=== PATIENT | male | born 1980 | race Caucasian/White ===

== ENCOUNTER 2017-04-05 12:02 | Emergency (ER) | payer OTHER ==
[~2017-04-05] VITALS: Ht 182.9 cm; Wt 100.0 kg
[2017-04-05 12:18] VITALS: BP 137/79; PULSE 69; RESP 16; O2SAT 99
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
[2017-04-05] MEDS ORDERED: Mupirocin 2% 22 Gm Ointment TOPICAL ONE (12:55)
[2017-04-05 13:13] VITALS: BP 126/71; PULSE 61; RESP 16; O2SAT 97
== END 2017-04-05 13:17 | disposition home or self-care (01) ==
LOC: SED 12:02
DX: L50.9 Urticaria, unspecified (principal); Z88.2 Allergy status to sulfonamides; Z88.1 Allergy status to other antibiotic agents

== ENCOUNTER 2017-04-10 10:21 | Emergency (ER) | payer OTHER ==
[~2017-04-10] VITALS: Ht 182.9 cm; Wt 99.1 kg
[2017-04-10 10:29] VITALS: BP 136/80; PULSE 56; RESP 14; O2SAT 97
--- NOTE | 2017-04-10 10:32 | ED.REPORT ---
HPI-Allergic Reaction Date of Service Apr 10, 2017 ED Provider: David Harp MD Patient is a 36 year old male who presents to the ED complaining of diffuse hives onset 3 weeks ago. Associated symptoms include eye lid swelling and throat swelling. The patient reports that the hives have been getting bigger. He denies difficulty breathing, nausea or diarrhea. Patient states that he has been trying to use Cetirizine and Ranidine, which had helped but did not completely resolve the hives. He recently switched to Fexofenadine yesterday instead of the Cetirizine but has seen no improvement. The patient states that he has not had any new foods, soaps or detergents. Patient states that he was seen last week for the hives and thought it was due to an allergic reaction to an antibiotic has been on but he finished that a few days ago. He reports that he had similar hives as a child that was only resolved with Prednisone. Nursing Notes Stated Complaint: HIVES HEAD TO TOE, THROAT TIGHT Chief Complaint: Allergic Reaction Nursing Notes Reviewed: Yes Allergies: Coded Allergies: cephalexin (Verified Allergy, Intermediate, LIP SWELLING, 04/05/17) Sulfa (Sulfonamide Antibiotics) (Verified Adverse Reaction, Mild, HIVES, ) Possible hives doxycycline (Verified Adverse Reaction, Mild, HIVES, 04/05/17) possible hives General Time Seen by MD: 10:31 Chief Complaint Rash Hx Obtained From: Patient Arrived By: Walk-in Onset Occurred: More than a week ago... (3 weeks) Symptom Duration: Waxes and wanes Similar Sx Previous: Yes Past Medical History Past Medical History none reported Past Surgical History right thigh, malgnimant melona remocal Smoking History Never Smoker Social History Alcohol Use: 1-3 per week Drug Use: Denies drug use Occupation live with parents and daughter work at [employer]. 04/05/2017 Ambulatory Status Independent Review of Systems Constitutional: Denies: Chills, Fever Ears / Nose / Throat: Reports: Throat swelling Respiratory: Denies: Non-productive cough, Shortness of breath, Wheezing GI: Denies: Diarrhea, Nausea Allergy / Immune: Reports: Allergic reaction, Hives Complete sys rev & neg: except as marked. Physical Exam Initial Vital Signs Vital Signs (First) Date Time Temp Pulse Resp B/P Pulse Ox O2 Delivery O2 Flow Rate FiO2 04/10/17 10:29 56 14 136/80 97 Room Air Initial VS: Reviewed General/Constitutional: Awake, Alert Respiratory / Chest: Atraumatic, Breath sounds NL, Breath sounds = bilat, No respiratory distress Cardiovascular: Heart rate NL, Regular rhythm, Heart sounds NL, No gallop, No murmurs, No rubs Skin: Warm, Dry diffuse urticaria Head / Eyes: Atraumatic, Normocephalic, PERRL bilateral conjunctival injection and mild eye lid swelling uvular swelling patches of urticaria Psychiatric: Affect NL, Mood NL Interpretation & Diagnostics ECG Interpretation ECG Interpretation: sinus rhythm early repolarization 1st degree block Time: 13:04 Normal ECG Interpretation: Normal rate (53) Re-Eval/Medical Decision Re-Evaluation/Progress #1: Time of Eval: 12:50 Patient Status: Mild relief Re-Evaluation/Progress #2: Time of Eval: 14:23 Patient Status: Condition improved Re-Evaluation/Progress Note: Discussed plan for discharge. Patient understands and agrees to plan. All questions were addressed. Counseled Regarding: Diagnosis, Need for follow-up, When/why to return to ED Discharge & Departure Primary Impression: Urticaria Disposition: Home Discharge Condition All VS Reviewed: Yes Condition: Stable Patient Instructions: Urticaria (ED) Additional Instructions: Emergency Department evaluation included interview and examination observation in the emergency department. We gave prednisone 60 mg and a dose of intramuscular epinephrine. Continue Cetrizine and ranitidine. Take tapering prednisone as prescibed. (60mg for 2 more days then 40mg then decrease by 10mg/ dy. Follow up with primary care joaquin. return to ED for increasing throat sweling, feeling faint or trouble breathing. Referrals: rBenden Dominguez (PCP) Scribe Attestation Portions of this note were transcribed by Zoe Wilson I, Dr. Harp personally performed the history, physical exam and medical decision-making; I reviewed and confirmed the accuracy of the information in the transcribed note. Signed by: Katherin Marte, 04/10/17. copies to: Brenden Dominguez Donald L MD Apr 10, 2017 10:31 Mary Wilson Apr 10, 2017 10:42
[2017-04-10] MEDS ORDERED: predniSONE 20 mg Tablet PO ONE (10:40)
[2017-04-10 12:00] VITALS: BP 122/73; PULSE 55; RESP 12; O2SAT 97
[2017-04-10 13:50] VITALS: BP 133/62; PULSE 65; RESP 18; O2SAT 97
[2017-04-10 15:16] VITALS: BP 125/70; PULSE 71; RESP 17; O2SAT 97
== END 2017-04-10 15:13 | disposition home or self-care (01) ==
LOC: SED 10:21
DX: L50.9 Urticaria, unspecified (principal); Z88.1 Allergy status to other antibiotic agents; Z88.2 Allergy status to sulfonamides
CPT/HCPCS: 93005; 96372; 99284; J0171